=== PATIENT | male | born 1955 | race Caucasian/White ===

== ENCOUNTER 2020-06-16 16:46 | Inpatient (IN) | payer MEDICARE ==
[~2020-06-16] VITALS: Ht 172.7 cm; Wt 98.9 kg
[2020-06-16 17:06] VITALS: BP 143/77
[2020-06-16] MEDS ORDERED: METFORMIN HCL500 M3 PO ×2 (17:11)
[2020-06-16] MEDS ORDERED: ASA81BEC PO (17:11)
[2020-06-16] MEDS ORDERED: CARVEDILOL6.25 M1 PO (17:12)
[2020-06-16] MEDS ORDERED: NORVASC 2.5 MG2.5 M1 PO (17:12)
[2020-06-16] MEDS ORDERED: PROSCAR 5MG TABL5 M1 PO (17:13)
[2020-06-16 17:32] LABS: ABSOLUTE LYMPHOCYTES 0.6 thou/uL (0.8-5.3); ABSOLUTE MONOCYTES 0.3 thou/uL (0.0-1.2); ABSOLUTE NEUTROPHILS 2.9 thou/uL (1.6-8.1); BASOPHILS 0.3 %; EOSINOPHILS 0.1 %; HEMATOCRIT 46.1 % (42.0-52.0); HEMOGLOBIN 15.7 gm/dL (14.0-18.0); LYMPHOCYTES 14.8 %; MCH 28.9 pg (26.0-34.0); MONOCYTES 8.5 %; MPV 7.6 fl. (7.2-11.1); NUCLEATED RBCS 0 /100WBC; PLATELET COUNT* 159 thou/uL (150-400); POLYS 76.3 %; RBC 5.43 mil/uL (4.50-6.00); RDW-CV 13.7 % (10.5-14.5); WBC 3.8 thou/uL (4.0-11.0)
[2020-06-16 17:45] LABS: CALCIUM 8.5 mg/dL (8.5-10.1); CREATININE 1.3 mg/dL (0.6-1.3); POTASSIUM 3.8 mmol/L (3.5-5.1)
[2020-06-16 17:47] LABS: APTT 28.4 Seconds (25.0-31.3); PROTIME 10.9 Seconds (9.20-11.50)
[2020-06-16 17:55] LABS: TOTAL BILIRUBIN 0.5 mg/dL (<0.1-1.0)
[2020-06-16 20:00] VITALS: BP 122/53
[2020-06-16] MEDS ORDERED: TRULICITY1.5 MG/0.5 (20:04)
[2020-06-16] MEDS ORDERED: CHLORTHALIDONE25 MG PO (20:05)
[2020-06-16] MEDS ORDERED: TRESIBA100 UNIT/1 (20:05)
[2020-06-16] MEDS ORDERED: KLOR-CON 10 ER10 MEQ PO (20:06)
[2020-06-16] MEDS ORDERED: ZETIA10 MG PO (20:06)
[2020-06-16] MEDS ORDERED: REPATHA SY140 MG/1 M SQ (20:08)
[2020-06-16] MEDS ORDERED: VASCAZEN CAPSU1 EACH PO (20:09)
[2020-06-16] MEDS ORDERED: COQ-10100 MG PO (20:10)
[2020-06-16 21:30] VITALS: BP 142/72
--- NOTE | 2020-06-17 04:25 | NUR ---
Patient arrived on unit at approx 2200. patient verbalized understanding of plan of care. license and permit specialist assessment completed as charted. alert and oriented times four.
[2020-06-17 08:19] LABS: CALCIUM 8.4 mg/dL (8.5-10.1); CREATININE 1.3 mg/dL (0.6-1.3); POTASSIUM 3.8 mmol/L (3.5-5.1)
[2020-06-17 08:27] LABS: ABSOLUTE MONOCYTES 0.2 thou/uL (0.0-1.2); ABSOLUTE NEUTROPHILS 2.2 thou/uL (1.6-8.1); BASOPHILS 0.3 %; HEMATOCRIT 47.3 % (42.0-52.0); HEMOGLOBIN 15.8 gm/dL (14.0-18.0); LYMPHOCYTES 28.4 %; MCH 28.8 pg (26.0-34.0); MCHC 33.4 g/dL (28.0-37.0); MCV 86.2 fL (80.0-100.0); MONOCYTES 5.9 %; MPV 7.9 fl. (7.2-11.1); NUCLEATED RBCS 0 /100WBC; PLATELET COUNT* 184 thou/uL (150-400); POLYS 65.4 %; RBC 5.48 mil/uL (4.50-6.00); RDW-CV 13.3 % (10.5-14.5); WBC 3.4 thou/uL (4.0-11.0)
[2020-06-17 08:52] VITALS: BP 127/62
--- NOTE | 2020-06-17 10:00 | NUR ---
ASSUMED CARE OF PT THIS AM AROUND 0715- M/S STATUS IN PLACE INDICATED- UPON ASSESSMENT PT NOTED TO BE RESTING IN BED- PT A&O X4- CONT OF BOWEL AND BLADDER- UP AD-SONNY IN ROOM, STEADY GAIT NOTED- LCTA, NON-PRDUCTIVE COUGH REPORTED- ABD SOFT/ROUND/EZO-XOBHTZ-OY X4 QUADS-LAST BM REPORTED THIS AM- IV NOTED TO RIGHT AC INTACT AND SL- IV ABT GIVEN THIS AM PRESCRIBED- FAIR PO INTAKE NOTED THIS AM WITH BREAKFAST- PT REPORTS APPETITE TO BE SLIGHTLY IMPROVED THIS AM- BS MONITORED ORDERED WITH SSI PRESCRIBED-LEFT FA FISTULA NOTED INTACT WITH POSITIVE BRUIT/THRILL- PT DENIES ANY C/O PAIN/DISCOMFORT AT THIS TIME- CALL LIGHT AND PERSONAL BELONGINGS WITH IN REACH-PT MAKES NEEDS KNOWN- ALL NEEDS MET AT THIS TIME-WCTM
--- NOTE | 2020-06-17 16:30 | EKG ---
[place] [address] ELECTROCARDIOGRAM REPORT Name: KELLY MALONE Room: [address] ADM IN .R.#: [id number] Admission: 06/16/20 Attend Phys: Mariusz Damon, Discharge: Date of : 51 Date of Service: 06/16/20 1726 Report #: [id number] THIS REPORT FOR: //name// [facility] ED Test Date: 2020-06-16 Test Time: 17:26:13 Pat Name: KELLY MALONE Department: Room: [facility] Gender: M Assistant Production Manager: CCD : 1955 Requested By: Karsten Aleman Order Number: [id number] MD: Jaya Puente Measurements Intervals [place] Rate: 97 P: 46 SD: 156 QRS: -13 QRSD: 86 T: 52 QT: 319 QTc: 405 Interpretive Statements Sinus rhythm No previous ECG available for comparison Electronically Signed On 06-17-2020 16:30:08 MANAGER SECONDARY by Jaya Puente [email or web address] <ELECTRONICALLY SIGNED> By: Jaya Puente MD, [facility] 06/17/20 1630 1726 1726 Jaya Puente MD, [facility] /EPI
[2020-06-17 17:19] VITALS: BP 141/63
[2020-06-17 20:20] VITALS: BP 145/66
--- NOTE | 2020-06-18 07:48 | NUR ---
PATIENT HAS SLEPT WELL THROUGHOUT THE NIGHT. VSS ON 2L 02 VIA NASAL CANNULA AND USES BIPAP AT NIGHT. PATIENT UP AD-SONNY AND STEADY. NO C/O SOA. PATIENT DID RECEIVE 1 LITER OF FLUIDS. IV IN LLEFT FOREARM FISTULA- GOOD BRUIT. PATIENT REMAINS IN ISOLATION FOR POSITIVE COVID-19. PATIENT INSTRUCTED TO USE CALL LIGHT WHEN NEEDING ASSISTANCE. HOURLY ROUNDS MADE. WILL CONTINUE WITH PLAN OF CARE AND NURSING TO MONITOR.
[2020-06-18 08:00] VITALS: BP 132/56
[2020-06-18 11:02] LABS: ABSOLUTE LYMPHOCYTES 0.7 thou/uL (0.8-5.3); ABSOLUTE MONOCYTES 0.3 thou/uL (0.0-1.2); ABSOLUTE NEUTROPHILS 4.8 thou/uL (1.6-8.1); BASOPHILS 0.4 %; EOSINOPHILS 0.1 %; HEMATOCRIT 40.4 % (42.0-52.0); HEMOGLOBIN 13.9 gm/dL (14.0-18.0); LYMPHOCYTES 12.7 %; MCH 29.2 pg (26.0-34.0); MCHC 34.5 g/dL (28.0-37.0); MCV 84.5 fL (80.0-100.0); MONOCYTES 4.4 %; MPV 8.1 fl. (7.2-11.1); NUCLEATED RBCS 0 /100WBC; PLATELET COUNT* 190 thou/uL (150-400); POLYS 82.4 %; RBC 4.78 mil/uL (4.50-6.00); RDW-CV 13.7 % (10.5-14.5); WBC 5.8 thou/uL (4.0-11.0)
[2020-06-18 11:24] LABS: ALBUMIN 2.3 g/dL (3.4-5.0); CALCIUM 8.3 mg/dL (8.5-10.1); POTASSIUM 3.4 mmol/L (3.5-5.1); TOTAL BILIRUBIN 0.3 mg/dL (<0.1-1.0); TOTAL PROTEIN 5.7 g/dL (6.4-8.2)
[2020-06-18 16:00] VITALS: BP 152/74
[2020-06-18] MEDS ORDERED: ZINC SULFATE220 MG PO (16:28)
[2020-06-18] MEDS ORDERED: VITAMIN C1000 MG PO (16:28)
[2020-06-18] MEDS ORDERED: VITAMIN D310 MC4 PO (16:28)
[2020-06-18 16:32] VITALS: BP 132/56
--- NOTE | 2020-06-18 17:24 | NUR ---
RECIEVED REPORT AROUND 0730. ASSUMED CARE. IV INTACT. MED/SURG STATUS. PT RA. MEDS GIVEN PER AUG. PT STATED "NO" TO ANY PAIN. PT UP ADLIB THIS SHIFT. HOURLY ROUNDING PER FORMED. DISCHARGE ORDERS RECIEVED. IV TAKEN OUT. DISCHARGE PAPER WORK GIVEN TO PT. PT COMMUNICATED UNDERSTANDING. PT WALKED OUT WITH NURSING STAFF OFF UNIT AT 1715. LEFT WITH FAMILY MEMBER.
== END 2020-06-18 17:15 | disposition home or self-care (01) | DRG 177 ==
LOC: M.ERS 16:46 → M.ORTHSURG 17:50 → M.TBA-ER 17:50 → M.ORTHSURG 21:30
PROVIDERS: Family Medicine; Internal Medicine; ADMIT Internal Medicine; ATTEND Internal Medicine
PROC: XW033E5 Introduction of Remdesivir Anti-infective into Peripheral Vein, Percutaneous Approach, New Technology Group 5 (ICD-10-PCS; principal; 2020-06-17)
DX: U07.1 COVID-19 (principal); J12.82 Pneumonia due to coronavirus disease 2019; R65.10 Systemic inflammatory response syndrome (SIRS) of non-infectious origin without acute organ dysfunction; E11.9 Type 2 diabetes mellitus without complications; E86.0 Dehydration; E78.01 Familial hypercholesterolemia; I10 Essential (primary) hypertension; Z79.899 Other long term (current) drug therapy